=== PATIENT | male | born 1960 | race Caucasian/White ===

== ENCOUNTER 2017-08-14 22:44 | Observation (INO) | payer OTHER ==
[~2017-08-14] VITALS: Ht 177.8 cm; Wt 81.8 kg
[2017-08-14 22:47] VITALS: BP 200/108; PULSE 81; RESP 16; TEMP 98.6; O2SAT 98
[2017-08-14] MEDS ORDERED: SODIUM CHLORIDE 0.9% FLUSH 10 ML FLUSH IVF PRN (23:00)
[2017-08-14] MEDS ORDERED: IOHEXOL 350 MG/ML 10 ML VIAL (for RAD DIAG) IVCONTRAST ONE (23:14)
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
[2017-08-14 23:20] LABS: AUTOMATED NEUTROPHIL # 4.2 TH/MM3 (1.8-7.7); BASOPHIL # 0.1 TH/MM3 (0-0.2); BASOPHIL % 0.8 % (0.0-2.0); EOSINOPHIL # 0.1 TH/MM3 (0-0.4); EOSINOPHIL % 1.4 % (0.0-4.0); HEMATOCRIT 39.8 % (39.0-51.0); HEMOGLOBIN 13.8 GM/DL (13.0-17.0); LYMPH % 38.2 % (9.0-44.0); LYMPHOCYTE # 3.2 TH/MM3 (1.0-4.8); MEAN CELL VOLUME 93.4 FL (80.0-100.0); MEAN CORPUSCULAR HEMOGLOBIN 32.4 PG (27.0-34.0); MEAN CORPUSCULAR HGB CONC 34.7 % (32.0-36.0); MEAN PLATELET VOLUME 7.2 FL (7.0-11.0); MONO % 10.2 % (0.0-8.0); MONOCYTE # 0.9 TH/MM3 (0-0.9); NEUT % 49.4 % (16.0-70.0); PLATELET COUNT 280 TH/MM3 (150-450); RED BLOOD COUNT 4.26 MIL/MM3 (4.50-5.90); RED CELL DISTRIBUTION WIDTH 15.3 % (11.6-17.2); WHITE BLOOD COUNT 8.5 TH/MM3 (4.0-11.0)
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
[2017-08-14 23:26] VITALS: BP 170/91; PULSE 77; RESP 16; O2SAT 95
[2017-08-14 23:31] LABS: INTERNATIONAL NORMALIZED RATIO 1.1 RATIO; PROTHROMBIN TIME - PATIENT 10.7 SEC (9.8-11.6)
[2017-08-14 23:41] LABS: BICARBONATE 22.6 MEQ/L (21.0-32.0); CALCIUM 8.7 MG/DL (8.5-10.1); CREATININE 0.9 MG/DL (0.60-1.30)
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
[2017-08-15 00:14] VITALS: BP 152/91; PULSE 80; RESP 16; O2SAT 98
[2017-08-15] MEDS ORDERED: SODIUM CHLOR 0.9% 1000 ML INJ 1,000 ML IV ONE (00:30)
[2017-08-15] MEDS ORDERED: MECLIZINE HCL 25 MG TAB PO ONE (00:30)
[2017-08-15 02:33] LABS: BILIRUBIN, URINE NEG (NEG); BLOOD, URINE NEG (NEG); GLUCOSE,URINE NEG (NEG); KETONE, URINE NEG (NEG); NITRITE,URINE NEG (NEG); PH, URINE 6.5 (5.0-8.5); URINE COLOR LIGHT-YELLOW (YELLW/STRAW); URINE LEUKOCYTE ESTERASE NEG (NEG)
[2017-08-15] MEDS ORDERED: LACTATED RINGER'S 1000 ML INJ 1,000 ML IV SCH (05:26)
[2017-08-15] MEDS ORDERED: ONDANSETRON HCL 4 MG/2 ML VIAL IV PUSH PRN ×2 (05:30→07:00)
[2017-08-15] MEDS ORDERED: ENALAPRILAT 1.25 MG/ML VIAL IV PUSH PRN ×2 (05:30→07:00)
[2017-08-15] MEDS ORDERED: ACETAMINOPHEN 325 MG TAB PO PRN ×2 (05:30→07:00)
[2017-08-15] MEDS ORDERED: KETOROLAC TROMETHAMINE 30 MG/ML (IVP) VIAL IVP PRN (05:30)
[2017-08-15 06:37] VITALS: BP 153/87; PULSE 76; RESP 16; O2SAT 96
[2017-08-15] MEDS ORDERED: MORPHINE SULFATE 2 MG/ML INJ IV PUSH PRN (07:00)
[2017-08-15] MEDS ORDERED: MISCELLANEOUS NURSING INFORMATION XX SCH (07:00)
[2017-08-15] MEDS ORDERED: CHLORHEXIDINE GLUCONATE 2 % 1 PACK (2 CLOTHS) TOP PRN (07:00)
[2017-08-15] MEDS ORDERED: MAGNESIUM HYDROXIDE SUSP 30 ML CUP PO PRN (07:00)
[2017-08-15] MEDS ORDERED: SODIUM CHLORIDE 0.9% FLUSH 10 ML FLUSH IV FLUSH PRN (07:00)
[2017-08-15] MEDS ORDERED: ACETAMINOPHEN/HYDROcodone 325 MG/5 MG TAB PO PRN (07:00)
[2017-08-15 08:14] VITALS: BP 155/81; PULSE 67; RESP 16; O2SAT 97
[2017-08-15] MEDS ORDERED: ACET325T15 PO (08:15)
[2017-08-15] MEDS ORDERED: MECL1TAB42 PO (08:15)
[2017-08-15] MEDS ORDERED: MAGN30S PO (08:15)
[2017-08-15] MEDS: MECLIZINE HCL 25 MG TAB PO SCH ×2 (08:17→13:07)
[2017-08-15] MEDS: METHOCARBAMOL 500 MG TAB PO SCH ×2 (08:17→14:00)
[2017-08-15] MEDS: SODIUM CHLOR 0.9% 1000 ML INJ 1,000 ML IV SCH ×2 (08:19→16:55)
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
[2017-08-15] MEDS ORDERED: SODIUM CHLORIDE 0.9% FLUSH 10 ML FLUSH IV FLUSH SCH (09:00)
[2017-08-15] MEDS ORDERED: THIAMINE HCL 100 MG TAB PO SCH (09:00)
[2017-08-15] MEDS ORDERED: FOLIC ACID 1 MG TAB PO SCH (09:00)
[2017-08-15] MEDS ORDERED: MULTIVITAMIN TAB PO SCH (09:00)
[2017-08-15 11:27] VITALS: BP_SYST 149; BP_SYST 154; BP_DIAS 78; BP_DIAS 84; PULSE 70; RESP 18; O2SAT 99
[2017-08-15 14:44] VITALS: BP 145/93; PULSE 73; RESP 16; TEMP 99.3; O2SAT 97
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
[2017-08-16] MEDS ORDERED: CHLORHEXIDINE GLUCONATE 2 % 1 PACK (2 CLOTHS) TOP SCH (04:00)
== END 2017-08-15 19:53 | disposition home or self-care (01) ==
LOC: NEPE 22:44 → EDBD 08-15 00:25 → NEDA 08-15 00:25 → NEPFCDU 08-15 13:42
PROVIDERS: ADMIT Surgery; ATTEND Surgery
DX: S06.0X0A Concussion without loss of consciousness, initial encounter (principal); S39.012A Strain of muscle, fascia and tendon of lower back, initial encounter; I10 Essential (primary) hypertension; F17.210 Nicotine dependence, cigarettes, uncomplicated; V48.5XXA Car driver injured in noncollision transport accident in traffic accident, initial encounter; Y92.410 Unspecified street and highway as the place of occurrence of the external cause
CPT/HCPCS: 70450; 71260; 72125; 74177; 80048; 80307; 81001; 85025; 85610; 96360; 96361; 97161; 99285; G0378; J7030; Q9967